=== PATIENT | female | born 2000 | race African-American/Black ===

== ENCOUNTER 2023-02-17 19:18 | Outpatient (REF) | payer MEDICAID, SELFPAY | END 2023-02-17 19:19 | disposition home or self-care (01) | LOC: HO.CHCLNP 19:18 | PROVIDERS: Visit Provider Pediatrics | DX: Z01.411 Encounter for gynecological examination (general) (routine) with abnormal findings (principal) | CPT/HCPCS: 88142 ==

== ENCOUNTER 2023-09-28 08:35 | Outpatient (REF) | payer MEDICAID, SELFPAY ==
[2023-09-28 15:43] LABS: Alanine Aminotransferase 93 U/L (0-31); Albumin Level 4.1 g/dL (3.5-5.0); Alkaline Phosphatase 70 U/L (39-117); Anion Gap 14 (12-20); Aspartate Amino Transferase 57 U/L (5-31); Bilirubin Total 0.6 mg/dL (0.0-1.0); Blood Urea Nitrogen 8 mg/dL (9-16); Calcium 8.6 mg/dL (8.4-10.2); Carbon Dioxide 24 mmol/L (22-29); Chloride 104 mmol/L (96-108); Estimated Glomerular Filt Rate > 60; Glucose Random 77 mg/dL (60-115); Sodium 139 mmol/L (135-145); Total Protein 7.1 g/dL (6.5-8.0)
[2023-09-29 08:52] LABS: HIV AB/AG Nonreactive (Nonreactive); HIV Num 1 0.05 S/CO (0.00-0.99); ~HepC Num1 0.11 S/CO (0.00-0.79); ~Hepatitis C Antibody Nonreactive (Nonreactive)
[2023-10-01 13:23] LABS: TS Negative Control Passed; TS Panel A 0; TS Panel B 0; TS Positive Control Passed; TSpotTB Negative (Negative)
== END 2023-09-28 08:36 | disposition home or self-care (01) ==
LOC: HO.CHCLDS 08:35
PROVIDERS: Visit Provider Internal Medicine
DX: Z00.00 Encounter for general adult medical examination without abnormal findings (principal); E66.01 Morbid (severe) obesity due to excess calories; J39.2 Other diseases of pharynx; E87.6 Hypokalemia; R74.01 Elevation of levels of liver transaminase levels; Z68.41 Body mass index [BMI] 40.0-44.9, adult
CPT/HCPCS: 36415; 80053; 84443; 86481; 86803; 87389

== ENCOUNTER 2024-02-01 10:39 | Outpatient (REF) | payer MEDICAID, SELFPAY ==
[2024-02-01 14:10] LABS: MANUAL DIFF FLAG NO
[2024-02-01 14:15] LABS: Basophils Absolute Auto 0.1 X10*3/uL (0.0-0.2); Basophils Percent Auto 0.8 % (0-2); Eosinophils Absolute Auto 0.1 X10*3/uL (0.0-0.4); Eosinophils Percent Auto 1.5 % (0-4); Hematocrit 41.2 % (37.0-47.0); Imm Gran Abs Auto 0.02 X10*3/uL (0.00-0.03); Imm Gran Pct Auto 0.3 % (0.0-0.4); Lymphocytes Absolute Auto 2.3 X10*3/uL (1.2-4.9); Mean Corpuscular HGB Conc 31.6 g/dl (31.0-35.0); Mean Corpuscular Hemoglobin 25.9 pg (27.0-33.0); Mean Corpuscular Volume 82.2 fL (80.0-98.0); Mean Platelet Volume 11.9 fL (9.4-12.3); Monocytes Absolute Auto 0.4 X10*3/uL (0.1-1.2); Monocytes Percent Auto 5.7 % (2-11); Neutrophils Absolute Auto 3.7 x10*3/uL (2.0-8.3); Neutrophils Percent Auto 56.7 % (45-73); Platelet Count 281 X10*3/uL (160-400); Red Blood Count 5.01 X10*6/uL (4.20-5.50); Red Cell Distribution Width 13.8 % (11.0-16.0); White Blood Count 6.5 X10*3/uL (4.8-10.8)
[2024-02-01 14:34] LABS: Alanine Aminotransferase 104 U/L (0-31); Albumin Level 4.2 g/dL (3.5-5.0); Alkaline Phosphatase 67 U/L (39-117); Anion Gap 9 (12-20); Aspartate Amino Transferase 65 U/L (5-31); Bilirubin Direct 0.3 mg/dL (0.0-0.5); Bilirubin Total 0.9 mg/dL (0.0-1.0); Blood Urea Nitrogen 8 mg/dL (9-16); Calcium 9.2 mg/dL (8.4-10.2); Carbon Dioxide 28 mmol/L (22-29); Chloride 108 mmol/L (96-108); Cholesterol 115 mg/dL (<200); Estimated Glomerular Filt Rate > 60; Glucose Fasting 107 mg/dL (60-99); HDL Cholesterol 40 mg/dL (>40); LDL Cholesterol Calculated 52 mg/dL (<100); Magnesium 2.1 mg/dL (1.6-2.6); Potassium 4.4 mmol/L (3.3-5.1); Sodium 141 mmol/L (135-145); Total Protein 7.3 g/dL (6.5-8.0); Triglycerides 115 mg/dL (<150)
[2024-02-01 14:59] LABS: Anion Gap 12 (12-20); Blood Urea Nitrogen 7 mg/dL (9-16); Calcium 9.7 mg/dL (8.4-10.2); Carbon Dioxide 26 mmol/L (22-29); Chloride 107 mmol/L (96-108); Estimated Glomerular Filt Rate > 60; Glucose Random 105 mg/dL (60-115); HCG Quantitative < 2 mIU/mL; Potassium 4.3 mmol/L (3.3-5.1); Sodium 141 mmol/L (135-145); TSH reflex Free T4 2.11 uIU/mL (0.32-4.0); Vitamin D 25-OH Total 16.8 ng/mL (>30)
[2024-02-02 08:34] LABS: HBc Num1 0.15 S/CO (0.00-0.79); HBsAGNum1 0.24 S/CO (0.00-0.99); Hepatitis A Antibody IgM 0.17 Index (0-0.79); Hepatitis B Core Antibody Nonreactive (Nonreactive); Hepatitis B Surface Antigen Negative (Negative); ~HepC Num1 0.14 S/CO (0.00-0.79); ~Hepatitis A Antibody IgM Nonreactive (Nonreactive); ~Hepatitis B Surface Antibody REACTIVE (Nonreactive); ~Hepatitis C Antibody Nonreactive (Nonreactive)
[2024-02-05 17:33] LABS: Testosterone, Free 6.3 pg/mL (0.1-6.4); Testosterone, Total 39 ng/dL (2-45)
== END 2024-02-01 10:40 | disposition home or self-care (01) ==
LOC: HO.CHCLDS 10:39
PROVIDERS: PCP Pediatrics; Referring Provider Internal Medicine; Visit Provider Pediatrics
DX: E87.6 Hypokalemia (principal); R74.01 Elevation of levels of liver transaminase levels; E66.01 Morbid (severe) obesity due to excess calories; Z68.41 Body mass index [BMI] 40.0-44.9, adult; N92.6 Irregular menstruation, unspecified
CPT/HCPCS: 36415; 80048; 80061; 80076; 82306; 83735; 84402; 84403; 84443; 84702; 85025; 86704; 86706; 86709; 86803; 87340

== ENCOUNTER 2024-05-04 17:18 | Outpatient (REF) | payer MEDICAID, SELFPAY ==
[2024-05-04 17:53] LABS: Appearance Urine Clear; Color Urine Yellow; Glucose Urine UA Negative (Negative); Leukocyte Esterase Urine Trace (Negative); Nitrite Urine Negative (Negative); PH 6.5 (5.0-9.0); Specific Gravity - Urine 1.025 (1.005-1.025); UMIC TRIGGER UACC YES; Urine Blood Negative (Negative); Urine Ketones Negative (Negative); Urine Protein Negative (Neg-Trace)
[2024-05-04 18:07] LABS: Bacteria Urine Trace (None Seen); Hyaline Casts Urine 0-2 /LPF (0-2); RBC Urine 0-2 /HPF (0-2); UACC Culture Trigger YES
[2024-05-05 05:27] LABS: CT PCR NOT DETECTED (Not Detect.); NG PCR NOT DETECTED (Not Detect.)
== END 2024-05-04 17:19 | disposition home or self-care (01) ==
LOC: HO.LNP 17:18
PROVIDERS: Visit Provider Internal Medicine Geriatric Medicine
DX: R35.0 Frequency of micturition (principal); R30.0 Dysuria
CPT/HCPCS: 81001; 87086; 87147; 87491; 87591

== ENCOUNTER 2024-06-13 14:51 | Outpatient (REF) | payer MEDICAID, SELFPAY ==
[2024-06-14 07:31] LABS: CT PCR NOT DETECTED (Not Detect.); NG PCR NOT DETECTED (Not Detect.)
[2024-06-14 11:44] LABS: Bacterial Vaginosis PCR NEGATIVE (Negative); Candida Group PCR NOT DETECTED (Not Detect); Candida glab krusei PCR NOT DETECTED (Not Detect); Trichomonas vaginalis PCR NOT DETECTED (Not Detect)
== END 2024-06-13 14:52 | disposition home or self-care (01) ==
LOC: HO.CHCLNP 14:51
PROVIDERS: Visit Provider Internal Medicine
DX: N89.8 Other specified noninflammatory disorders of vagina (principal)
CPT/HCPCS: 0352U; 87491; 87591

== ENCOUNTER 2024-09-14 12:50 | Outpatient (REF) | payer SELFPAY ==
--- OUTSIDE RECORDS SUMMARY | 2024-09-14 13:19 | XMS_ITS | Encounter Summary ---
Author Organization [employer] Address [address] [facility] 7 [place] [address] Care Team Providers Care Supervisor Packing Room Name Role Phone Eunice Magana MD Primary Care Provider [phone] Reason for Visit * Reason Onset Date Comments Appointment Request 09/14/2023 Encounter Details Date Type Department Care Team ([facility] st Contact Info) Description 09/14/2023 Telephone [facility] MEDICINE [address] [place] [address] Eunice Magana MD [address] [place] [phone] Appointment Request Social History Tobacco Use Types Packs/Day Years Used Date Smoking Tobacco: Never Smokeless Tobacco: Never Alcohol Use Standard Drinks/Week Comments Not Currently 0 (1 standard drink = 0.6 oz pur e alcohol) Housing Stability Answer Date Recorded What is your housing situation today? I have reshmaisa cole 09/16/[address] you li ve. Do you have problems with any of the following? None of the above 09/16/2023 Food Insecurity Answer Date Recorded Within the past 12 months, y ou worried that your food would run out before you got money to buy more: Never True 09/16/2023 Within the past 12 months,th e food you bought just didn't last and you didn't have enough money to get more: Never True Transportation Answer Date Recorded In the past 12 months, has l ack of transportation kept you from medical appts, meetings, work or from getting things needed for daily living? No 09/16/2023 Utilities Answer Date Recorded In the past 12 months, has t he electric, gas, oil or water [employer] threatened to shut off services in your home? No 09/16/2023 Comments Unknown Sex and Gender Information Value Date Recorded Sex Assigned at Female 05/24/2022 10:17 AM EDT Legal Sex Female 10:17 AM EDT Gender Identity Female 05/24/2022 10:17 AM EDT Sexual Orientation Straight 02/01/2024 10 :38 AM EDT documented as of this encounter Miscellaneous Notes * Telephone Encounter - Veronica Lan - 09/14/2023 8:58 AM EST Tc from pt requesting PE appt, pt need PE for a job and also need tb test. documented in this encounter Plan of Treatment Not on file documented as of this encounter Visit Diagnoses Not on filedocumented in this encounter Care Teams Supervisor Packing Room Relationship Specialty Start Date End Date Eunice Magana MD [address] [place] [phone] PCP - General Family Medicine 07/25/18 documented as of this encounter
--- OUTSIDE RECORDS SUMMARY | 2024-09-14 13:19 | XMS_ITS | Encounter Summary ---
Author Organization [employer] Address [address] [facility] 7 [place] [address] Care Team Providers Care Back Panel Padder Name Role Phone Eunice Magana MD Primary Care Provider [phone] Reason for Referral * Imaging (Routine) - Closed Specialty Diagnoses / Procedures Referred By Makayla peck Referred To Contact Radiology Diagnoses Transaminitis Procedures US Abdomen Complete Maribell Damon MD [address] [place] [address] Phone: tel: fax: [facility] [address] [facility], [address] [place] [phone] Phone: tel: fax: Referral ID Status Reason Start Date Expiration Date Visits Re quested Visits Authorized [id number] Closed 09/29/2023 09/28/2024 1 1 Encounter Details Date Type Department Care Team (Late st Contact Info) Description 09/29/2023 Orders Only [facility] MED & PEDS [address] [place], [place] [phone] Maribell Damon MD [address] [place], [place] [phone] Hypokalemia (Primary Dx); Transaminitis Social History Tobacco Use Types Packs/Day Years Used Date Smoking Tobacco: Never Smokeless Tobacco: Never Alcohol Use Standard Drinks/Week Comments Not Currently 0 (1 standard drink = 0.6 oz pur e alcohol) Housing Stability Answer Date Recorded What is your housing situation today? I have reshma sing 09/16/[address] you li [...] t he electric, gas, oil or water company threatened to shut off services in your home? No 09/16/2023 Comments Unknown Sex and Gender Information Value Date Recorded Sex Assigned at Female 05/24/2022 10:17 AM EDT Legal Sex Female 10:17 AM EDT Gender Identity Female 05/24/2022 10:17 AM EDT Sexual Orientation Straight 02/01/2024 10 :38 AM EDT documented as of this encounter Plan of Treatment Scheduled Orders Name Type Priority Associated Diagnoses Orde r Schedule US Abdomen Complete Imaging Routine Transaminitis Expected: 09/29/2023, Expires: 09/28/2024 documented as of this encounter Procedures Procedure Name Priority Date/Time Associated Diagnosis Comments HEPATITIS PANEL, GENERAL Routine 02/01/2024 10:42 AM EDT Transaminitis MAGNESIUM Routine 02/01/2024 10:42 AM EDT Hypokalemia BASIC METABOLIC PANEL Routine 02/01/2024 10:42 AM EDT Hypokalemia documented in this encounter Results * Hepatitis A,B,C Profile (02/01/2024 10:42 AM EDT) Hepatitis A IgM Nonreactive Nonreactive [facility] Comment:IgM antibodies to GARZA V not detected; does not exclude earlyacute or recovered HAV infection. ~Hepatitis B Surface Antibody REACTIVE Nonreactive [facility] Comment:REACTIVE: > 11.99 mI U/mL Hepatitis B Core Antibody Nonreactive Nonreactive [facility] Hepatitis C Antibody Nonreactive Nonreactive [facility] Comment:Antibodies to HCV no t detected; does not exclude early acuteHCV infection. Hepatitis B Surface Ag Negative Negative [facility] Blood Venous blood specimen / Unknown 02/01/2024 10:42 AM EDT 02/01/2024 2:08 PM EDT Maribell Damon MD LAB BLOOD ORDERABLES Final Result Performing Organization Address [facility]/ZIP Co de Phone Number [facility] [address] [place] [phone] * Magnesium (02/01/2024 10:42 AM EDT) Pathologist [facility] Magnesium 2.1 1.6 - 2.6 mg/dL [facility] Blood Venous blood specimen / Unknown 02/01/2024 10:42 AM EDT 02/01/2024 2:08 PM EDT Maribell Damon MD LAB BLOOD ORDERABLES Final Result Performing Organization Address [facility] de Phone Number [facility] [address] [place] [phone] * (ABNORMAL) Basic Metabolic Panel (02/01/2024 10:42 AM EDT) Pathologist [facility] Sodium 141 135 - 145 mmol/L [facility] Potassium 4.3 3.3 - 5.1 mmol/L [facility] Chloride 107 96 - 108 mmol/L [facility] Carbon Dioxide 26 22 - 29 mmol/L [facility] Anion Gap 12 12 - 20 [facility] Urea Nitrogen (BUN) 7(L) 9 - 16 mg/dL [facility] Creatinine, Serum 0.79 0.5 - 1.4 mg/dL [facility] Estimated Glomerular Filt Rate >60 [facility] Comment:NOTE: For -Am erican individuals, multiply the result by 1.210.Chronic Kidney Disease: Estimated GFR < 60 mL/min/1.97y7Huwnpe Kidney Disease: Estimated GFR < 15 mL/min/1.73m2 Glucose 105 60 - 115 mg/dL [facility] Calcium 9.7 8.4 - 10.2 mg/dL [facility] Blood Venous blood specimen / Unknown 02/01/2024 10:42 AM EDT 02/01/2024 2:08 PM EDT us Maribell Damon MD LAB BLOOD ORDERABLES Final Result [facility] [address] [place] [phone] documented in this encounter Visit Diagnoses Diagnosis Hypokalemia- Primary Hypopotassemia Transaminitis Nonspecific elevation of levels of transaminase or lactic acid dehydrogenase (LDH) documented in this encounter Care Teams Back Panel Padder Relationship Specialty Start Date End Date Eunice Magana MD [address] [place] [phone] PCP - General Family Medicine 07/25/18 documented as of this encounter
--- OUTSIDE RECORDS SUMMARY | 2024-09-14 13:19 | XMS_ITS | Clinical Summary ---
Author Organization [employer] Address [address] [place] [address] 7[address] [place] [address] Care Team Providers Care City Designer Name Role Phone Eunice Magana MD Primary Care Provider [phone] Allergies No known active allergies Medications ergocalciferol (Vitamin D2) 1.25 MG (06559 UT) capsule Take 1 capsule (1.25 mg) by mouth 1 (one) time per week. 15 capsule 02/02/2024 Active Active Problems Problem Noted Date Diagnosed Date Class 3 severe obesity witho ut serious comorbidity with body mass index (BMI) of 40.0 to 44.9 in adult 10/27/2022 Childhood obesity 07/11/2018 Encounters Date Type Department Care Team Description 09/14/2024 11:15 AM EST Office Visit [facility] MED & PEDS [address] [place], [place] [phone] Eunice Magana MD DUB (dysfunctional uterine bleeding) (Primary Dx); Class 3 severe obesity without serious comorbidity with body mass index (BMI) of 40.0 to 44.9 in adult, unspecified obesity type (CMS/HCC) 09/14/2024 Travel 09/12/2024 Telephone [facility] MEDICINE [address] [place] [address] Eunice Magana MD Nurse Triage from Last 3 Months Immunizations Name Administration Dates Next Due DTaP 04/03/2004, 1,2000,08/29,2000 HPV, Quadrivalent 10/09/2010,05/13/2010,03/13/20 10 Hep A, ped/adol, 2 dose 07/16/2014 Hep B, Adolescent or Pediatric 08/24/2018,2000,2000 Hep B, adult 04/03/2019,10/02/2018 IPV 04/03/2004, 1,2000,05/30 Influenza injectable quadriv alent preservative free 09/26/2023,07/23/2016,07/23/2015,04/29 Influenza, Split (incl. gunnar fied surface antigen) 05/11/2013 MMR 04/03/2004,2001 Meningococcal MCV4P ACYW-135 07/23/2016,03/11/20 11 Pfizer Covid-19 Vaccine 12+ 09/26/2023, 1 Pneumococcal Conjugate PCV 7 2001, 2000,2000,08/29 TD (adult), 2 Lf tetanus tox oid, preservative free, adsorbed 03/13/2010 Tdap 07/16/2014 Varicella 06/07/2001 Social History Tobacco Use Types Packs/Day Years Used Date Smoking Tobacco: Never Passive Smoke Exposure: Never Smokeless Tobacco: Never Tobacco Cessation:Counseling Given: Not Answered Alcohol Use Standard Drinks/Week Comments Not Currently 0 (1 standard drink = 0.6 oz pur e alcohol) Housing Stability Answer Date Recorded What is your housing situation today? I have reshma cole 09/16/[address] you [...] Orientation Straight 02/01/2024 10 :38 AM EDT Last Filed Vital Signs Vital Sign [place] Time Taken Comments Blood Pressure 124/80 09/14/2024 11:43 AM EST Pulse 91 09/14/2024 11:43 AM EST Temperature 36 ??C (96.8 ??F) 09/14/2024 11:43 AM EST Respiratory Rate 20 09/14/2024 11:43 AM EST Oxygen Saturation 98% 09/14/2024 11:43 AM EST Inhaled Oxygen Concentration - - Weight 119 kg (262 lb) 09/14/2024 11:43 AM EST Height 160 cm (5' 3 ) 09/14/2024 11:43 AM EST Body Mass Index 46.41 09/14/2024 11:43 AM EST Plan of Treatment Health Maintenance Due Date Last Done Comments Depression Screening 2000 Alcohol/Substance Use Screening 2012 Hepatitis A Vaccines (2 of 2 - 2-dose series) 01/14/2015 07/16/2014 COVID-19 Vaccine ( season) 2024 09/26/2023, 06/16/2021, 05/11/2021 Influenza Vaccine (#1) 2024 , 07/23/2016, 07/23/2015, Additional history exists DTaP/Tdap/Td Vaccines (7 - Td or Tdap) 07/16/2024 07/16/2014, 03/13/2010, 04/03/2004, Additional history exists SDOH Screening 09/16/2024 09/16/2023 Diabetes: Hemoglobin A1C 01/31/2025 024, 12/15/2021, 08/14/2020 Family Planning (PISQ) 01/31/2025 02/01/2024 Tobacco Screening 09/14/2025 09/14/2024 Pap Smear 02/17/2026 02/17/2023, 01/14/2022 Lipid Panel 01/31/2029 02/01/2024, 11/23, 08/14/2020 Zoster Vaccines (1 of 2) 2050 RSV Patients and Patients Aged 60 years or older (1 - 1-dose 75+ series) 2075 Pneumococcal Vaccine: Pediatrics (0 to 5 Years) and At-Risk Patients (6 to 49) Years) Aged Out 2001, 2000, 2000, Additional history exists No longer eligible based on patient's age to complete this topic IPV Vaccines Completed 04/03/2004, 09/23, 2000, Additional history exists HPV Vaccines Completed 10/09/2010, 04/25, 03/13/2010 Meningococcal Vaccine Completed 07/23/2016, 011 Hepatitis B Vaccines Completed 04/03/2019, 10/02/2018, 08/24/2018, Additional history exists HIV Screening Completed 09/28/2023, 12/15/2021 Hepatitis C Screening Completed 02/01/2024 , 09/28/2023, 12/15/2021 HIB Vaccines Aged Out No longer eligi ble based on patient's age to complete this topic RSV under 20 months Aged Out No longe r eligible based on patient's age to complete this topic Rotavirus Vaccines Aged Out No longer eligible based on patient's age to complete this topic Procedures Procedure Name Priority Date/Time Associated Diagnosis Comments HEPATITIS PANEL, GENERAL Routine 02/01/2024 10:42 AM EDT Transaminitis LIPID PANEL, STANDARD Routine 02/01/2024 10:42 AM EDT Class 3 severe obesity due to excess calories without serious comorbidity with body mass index (BMI) of 40.0 to 44.9 in adult (CMS/HCC) Missed periods POCT GLYCATED HEMOGLOBIN, TOTAL Routine 02/01/2024 10:09 AM EDT Class 3 severe obesity due to excess calories without serious comorbidity with body mass index (BMI) of 40.0 to 44.9 in adult (CMS/HCC) HIV 1/2 ANTIGEN/ANTIBODY, FOURTH GENERATION W/RFL Routine 09/28/2023 8:37 AM EST Annual physical exam Class 3 severe obesity without serious comorbidity with body mass index (BMI) of 40.0 to 44.9 in adult, unspecified obesity type (CMS/HCC) Throat disorder PAP SMEAR Routine 02/17/2023 12:00 AM EDT Encounter for gynecological examination with abnormal finding from Last 3 Months or Most Recently Relevant to Health Maintenance Results * Hepatitis A,B,C Profile (02/01/2024 10:42 AM EDT) Hepatitis A IgM Nonreactive Nonreactive [facility] Comment:IgM antibodies to GARZA V not detected; does not exclude earlyacute or recovered HAV infection. ~Hepatitis B Surface Antibody REACTIVE Nonreactive [facility] Comment:REACTIVE: > 11.99 mI U/mL Hepatitis B Core Antibody Nonreactive Nonreactive [facility] Hepatitis C Antibody Nonreactive Nonreactive [facility] Comment:Antibodies to HCV no t detected; does not exclude early acuteHCV infection. Hepatitis B Surface Ag Negative Negative [facility] Blood Venous blood specimen / Unknown 02/01/2024 10:42 AM EDT 02/01/2024 2:08 PM EDT us Maribell Damon MD LAB BLOOD ORDERABLES Final Result [facility] [address] [place] [phone] * (ABNORMAL) Lipid Panel, Standard (02/01/2024 10:42 AM EDT) Triglycerides 115 <150 mg/dL [facility] Comment:Desirable Triglyceri de: less than 150 mg/dLBorderline High Triglyceride 150-199 mg/dLHigh Triglyceride: 200-499 mg/dLVery High Triglyceride: greater than or equal to 5OO mg/dL Cholesterol 115 <200 mg/dL [facility] Comment:Desirable Cholestero l: less than 200 mg/dLBorderline High Cholesterol: 200-239 mg/dLHigh Cholesterol: greater than 239 mg/dL LDL Cholesterol Calculated 52 <100 mg/dL [facility] Comment:Desirable LDL: less than 100 mg/dLNear Optimal/Above Optimal LDL: 110- 129 mg/dLBorderline High LDL: 130-159 mg/dLHigh LDL: 160-189 mg/dLVery High LDL: greater than or equal to 190 mg/dL HDL Cholesterol 40(L) >40 mg/dL [facility] Comment:Desirable HDL: great er than 40 mg/dL Note: This HDL assay may give artificially low results in patients with liver disease. Blood Venous blood specimen / Unknown 02/01/2024 10:42 AM EDT 02/01/2024 2:08 PM EDT us Eunice Magana MD LAB BLOOD ORDERABLES Final Re sult [facility] [address] [place] [phone] * POCT HGB A1C (02/01/2024 10:09 AM EDT) Hemoglobin A1C 5.9 4.0 - 6.0 % QC Media Lot # [id number] Lot# Expiration Date Blood 02/01/2024 10:0 9 AM EDT Eunice Magana MD POINT OF CARE TEST ENTER/EDIT ORDERABLES Final Result * HIV-1/2 Antigen and Antibodies, Fourth Generation, with Reflexes (09/28/2023 8:37 AM EST) HIV AB/AG Nonreactive Nonreactive [facility] Comment:HIV-1 p24 Ag and/or HIV-1/HIV-2 Ab not detected.A test result that is nonreactive does not exclude thepossibility of exposure to or infection with HIV-1 and/orHIV-2. Nonreactive results in this assay for individualswith prior exposure to HIV-1 and/or HIV-2 may be due toantigen and antibody levels that are below the limit ofdetection of this assay.The [employer] HIV Ag/Ab Combo assay result andsupplemental assay results should be interpreted inconjunction with the patient's clinical presentation,history and other laboratory results. If the results areinconsistent with clinical evidence, additional testing issuggested to confirm the result. Blood Venous blood specimen / Unknown 09/28/2023 8:37 AM EST 09/28/2023 2:32 PM EST us Maribell Damon MD LAB BLOOD ORDERABLES Final Result [facility] [address] [place] [phone] * Pap Smear (02/17/2023 12:00 AM EDT) Swab Cervix uteri structure / Unknown 02/17/2023 02/22/2023 9:15 AM EDT Narrative [facility] - 03/16/2023 9:25 AM EDT ----- ------- Name: Sohan Mcgrath ?Age/Sex: 22/F ? : 2000 Unit#: [id number] ?? Attend Dr: Eunice Magana MD ?Re02/17/23 ?Status: DEP REF ? Location: HO.CHCLNP ? Disch: ? ----- ------- SPEC : [id number] ?RECD: 02/22/23 ? STATUS: ??SOUT ? REQ NUM: [id number] ? ALECIA: 02/17/23- ? SUBM DR: Eunice Magana MD ? ENTERED: ??02/23/23 ?SP TYPE: Pap Smr ?OTHR : ? ORDERED: ??Pap Smear ? Interpretation ?? Satisfactory for evaluation. ?? Negative for intraepithelial lesion or malignancy. ?Clinical Information LMP: 12/23/22, Irregular Previous PAP test: 01/14/22, Abnormal Other history: Hx of abnormal pap within 3 years (ASCUS), hx of positive HPV test ? Material Received ?? ThinPrep-Cervical ----- ------- Signed (signature on file) GRETTA Carlson ([facility]) 03/16/23 0925 ? ----- ------- ? END OF REPORT ? us Eunice Magana MD LAB CYTOLOGY ORDERABLES Final Result [facility] [address] [place] [address] [phone] from Last 3 Months or Most Recently Relevant to [place] [address] Care Teams City Designer Relationship Specialty Start Date End Date Eunice Magana MD [address] [place] [phone] PCP - General Family Medicine 07/25/18
--- OUTSIDE RECORDS SUMMARY | 2024-09-14 13:20 | XMS_ITS | Clinical Summary ---
Author Organization [employer] [facility] it Address [address] [place] [address] Care Team Providers Care Mold Cleaner Name Role Phone Unavailable Primary Care Provider Unavailabl e Social History Tobacco Use Types Packs/Day Years Used Date Smoking Tobacco: Never Assessed Comments Unknown Sex and Gender Information Value Date Recorded Sex Assigned at Not on file Legal Sex Female 9:00 AM EST Gender Identity Not on file Sexual Orientation Not on file Plan of Treatment Health Maintenance Due Date Last Done Comments Gonorrhea/Chlamydia Screening 2000 HPV Vaccines (1 - 3-dose series) 2015 DTaP,Tdap,and Td Vaccines (1 - Tdap) 2019 Hepatitis B Vaccines (1 of 3 - 19+ 3-dose series) 2019 Cervical Cancer Screening: P ap Smear 2021 Depression Screening 06/27/2022 HIV Screening 06/27/2022 Hepatitis C Screening 06/27/2022 Social Influencers of Health Screening 06/27/2022 COVID-19 Vaccine ( - 2023-2 5 season) 2024 Influenza Vaccine (#1) 2024 HIB Vaccines Aged Out No longer eligi ble based on patient's age to complete this topic Hepatitis A Vaccines Aged Out No long er eligible based on patient's age to complete this topic IPV Vaccines Aged Out No longer eligi ble based on patient's age to complete this topic MMR Vaccines Aged Out No longer eligi ble based on patient's age to complete this topic Meningococcal ACWY Vaccine Aged Out N o longer eligible based on patient's age to complete this topic Meningococcal B Vacine Aged Out No lo nger eligible based on patient's age to complete this topic Pneumococcal Vaccine: Pediat rics (0 to 5 Years) and At-Risk Patients (6 to 64 Years) Aged Out No longer eligible b ased on patient's age to complete this topic RSV Immunization Patients Un justice 20 months Aged Out No longer eligible b ased on patient's age to complete this topic Varicella Vaccines Aged Out No longer eligible based on patient's age to complete this topic
--- OUTSIDE RECORDS SUMMARY | 2024-09-14 13:20 | XMS_ITS | Encounter Summary ---
Author Organization [email or web address] Address [address] [place] [address] Care Team Providers Care Vehicle Assembly Inspector Name Role Phone Eunice Magana MD Primary Care Provider [phone] Reason for Referral * Imaging (Routine) - Authorized Specialty Diagnoses / Procedures Referred By Contac t Referred To Contact Radiology Diagnoses DUB (dysfunctional uterine bleeding) Procedures Us Pelvis complete Eunice Magana MD [address] [place] [address] Phone: tel: fax: [facility] [address] [place] [address] Phone: tel: fax: Referral ID Status Reason Start Date Expiration Date V isits Requested Visits Authorized [id number] Authorized 09/14/2024 09/14/2025 1 1 * Imaging (Routine) - Authorized Specialty Diagnoses / Procedures Referred By Contac t Referred To Contact Radiology Diagnoses DUB (dysfunctional uterine bleeding) Procedures US Pelvis Transvaginal Eunice Magana MD [address] [place] [address] Phone: tel: fax: [facility] [address] [place] [address] Phone: tel: fax: Referral ID Status Reason Start Date Expiration Date V isits Requested Visits Authorized [id number] Authorized 09/14/2024 09/14/2025 1 1 Encounter Details Date Type Department Care Team (Late st Contact Info) Description 09/14/2024 11:15 AM EST Office Visit [facility] P[facility]S [address] [place] [address] Eunice Magana MD [address] [place] [address] DUB (dysfunctional uterine bleeding) (Primary Dx); Class 3 severe obesity without serious comorbidity with body mass index (BMI) of 40.0 to 44.9 in adult, unspecified obesity type (CMS/HCC) Social History Tobacco Use Types Packs/Day Years Used Date Smoking Tobacco: Never Passive Smoke Exposure: Never Smokeless Tobacco: Never Alcohol Use Standard [...] AM EDT documented as of this encounter Last Filed Vital Signs Vital Sign Reading [...] Mass Index 46.41 09/14/2024 11:43 AM EST documented in this encounter Plan of Treatment Scheduled Orders Name Type Priority Associated Diagnoses Orde r Schedule Chlamydia/N. Gonorrhoeae RNA, TMA, Urogenitial Microbiology Routine DUB (dysfunctional uterine bleeding) Ordered: 09/14/2024 TSH W/Reflex to FT4 Lab Routine DUB (dysfunctional uterine bleeding) Expected: 09/14/2024 (Approximate), Expires: 09/14/2025 Hemoglobin A1c Lab Routine DUB (dysfunctional uterine bleeding) Expected: 09/14/2024 (Approximate), Expires: 09/14/2025 Prothrombin Time-INR Lab Routine DUB (dysfunctional uterine bleeding) Expected: 09/14/2024, Expires: 09/14/2025 hCG, Total, Quantitative Lab Routine DUB (dysfunctional uterine bleeding) Expected: 09/14/2024 (Approximate), Expires: 09/14/2025 CBC auto differential Lab Routine DUB (dysfunctional uterine bleeding) Expected: 09/14/2024 (Approximate), Expires: 09/14/2025 Lipid Panel, Standard Lab Routine Class 3 severe obesity without serious comorbidity with body mass index (BMI) of 40.0 to 44.9 in adult, unspecified obesity type (CMS/HCC) Expected: 09/14/2024 (Approximate), Expires: 09/14/2025 Hepatic Function Panel Lab Routine Class 3 severe obesity without serious comorbidity with body mass index (BMI) of 40.0 to 44.9 in adult, unspecified obesity type (CMS/HCC) Expected: 09/14/2024 (Approximate), Expires: 09/14/2025 Bacterial Vaginosis Panel Microbiology Routine DUB (dysfunctional uterine bleeding) Ordered: 09/14/2024 Hepatitis C Antibody with Reflex to HCV, RNA, Quantitative, Real-Time PCR Lab Routine DUB (dysfunctional uterine bleeding) Expected: 09/14/2024, Expires: 09/14/2025 HIV-1/2 Antigen and Antibodies, Fourth Generation, with Reflexes Lab Routine DUB (dysfunctional uterine bleeding) Expected: 09/14/2024 (Approximate), Expires: 09/14/2025 Syphilis Screen Lab Routine DUB (dysfunctional uterine bleeding) Expected: 09/14/2024, Expires: 09/14/2025 US Pelvis Transvaginal Imaging Routine DUB (dysfunctional uterine bleeding) Expected: 09/14/2024, Expires: 09/14/2025 Us Pelvis complete Imaging Routine DUB (dysfunctional uterine bleeding) Expected: 09/14/2024, Expires: 09/14/2025 documented as of this encounter Visit Diagnoses Diagnosis DUB (dysfunctional uterine bleeding)- Primary Other disorder of menstruation and other abnormal bleeding from female genital tract Class 3 severe obesity without serious comorbidity with body mass index (BMI) of 40.0 to 44.9 in adult, unspecified obesity type (CMS/HCC) documented in this encounter Care Teams Vehicle Assembly Inspector Relationship Specialty Start Date End Date Eunice Magana MD [address] [place] [phone] PCP - General Family Medicine 07/25/18 documented as of this encounter
--- OUTSIDE RECORDS SUMMARY | 2024-09-14 13:20 | XMS_ITS | Encounter Summary ---
Author Organization [employer] Address [address] [facility] 7t [place] [address] Care Team Providers Care Diamond Die Polisher Name Role Phone Eunice Magana MD Primary Care Provider Encounter Details Date Type Department Care Team ([facility] st Contact Info) Description 02/02/2024 Telephone [facility] MED & PEDS [address] [place], [place] [phone] Eunice Magana MD [address] [place] [address] Social History Tobacco Use Types Packs/Day Years [...] encounter Miscellaneous Notes * Telephone Encounter - Eunice Magana MD - 02/02/2024 1:12 PM EDT ----- Message from Maribell Damon MD sent at 02/01/2024 3:42 PM EDT ----- FYI. Sent to me by mistake. ----- Message ----- From: Interface, Lab Results In Sent: 02/01/2024 2:17 PM EDT To: Maribell Damon MD documented in this encounter Plan of Treatment Not on file documented as of this encounter Visit Diagnoses Not on filedocumented in this encounter Care Teams Diamond Die Polisher Relationship Specialty Start Date End Date Eunice Magana MD [address] [place] [address] PCP - General Family Medicine 07/25/18 documented as of this encounter
--- OUTSIDE RECORDS SUMMARY | 2024-09-14 13:20 | XMS_ITS | Encounter Summary ---
Author Organization [employer] Address [address] [facility] 7t [place] [address] Care Team Providers Care Pin Worker Name Role Phone Eunice Magana MD Primary Care Provider [phone] Encounter Details Date Type Department Care Team (Latest Contact Info) Description 09/14/2024 Travel Social History Tobacco Use Types Packs/Day Years [...] as of this encounter Plan of Treatment Not on file documented as of this encounter Visit Diagnoses Not on filedocumented in this encounter Care Teams Pin Worker Relationship Specialty Start Date End Date Eunice Magana MD [address] [place] [address] PCP - General Family Medicine 07/25/18 documented as of this encounter
--- OUTSIDE RECORDS SUMMARY | 2024-09-14 13:20 | XMS_ITS | Encounter Summary ---
Author Organization [employer] Address [address] [facility] 7t [place] [address] Care Team Providers Care Electrical Controls Designer Name Role Phone Eunice Magana MD Primary Care Provider [phone] Reason for Visit * Reason Onset Date Comments Nurse Triage 09/12/2024 Encounter Details Date Type Department Care Team ([facility] st Contact Info) Description 09/12/2024 Telephone [facility] [address] [place] [address] Eunice Magana MD [address] [place] [address] Nurse Triage Social History Tobacco Use Types Packs/Day Years [...] encounter Miscellaneous Notes * Telephone Encounter - Ella Kinsey RN - 09/12/2024 9:46 AM EST Triage call Pt reports abnormal vaginal bleeding for a month now. Days range from heavy using 5-6 pads to light with only 1-2 pads. Pt denies abdominal pain, dizziness, nausea, vomiting. Neg for UTI sx or bruising. Pt was last seen 06/13/24. ASK apt with Dr. Magana 09/14/24 @ 1115am. Pt agrees withdisposition. Pt is going to call insurance to be sure in place before apt. Pt switched to [employer]. Protocol Used: Vaginal Bleeding - Abnormal (Adult) Protocol-Based Disposition: See in Office or Video Visit within 2 Weeks Positive Triage Question: * Periods last > 7 days * All higher-acuity triage questions were negative Care Advice Discussed: * Reasons To Call Back - Severe abdomen pain or lightheadedness occurs - test is positive - Bleeding worsens - Bleeding or spotting lasts over 7 days - You become worse * Telephone Encounter - Matthieu Arteaga - 09/12/2024 9:26 AM EST TC from pt reports having menstrual cycle for about a month now and is concerned , Please call [phone] Pt changed her insurance to [employer] / currently active but re- assingned to [employer]eg[employer] . Ptwill be contacting insurance today . documented in this encounter Plan of Treatment Not on file documented as of this encounter Visit Diagnoses Not on filedocumented in this encounter Care Teams Electrical Controls Designer Relationship Specialty Start Date End Date Eunice Magana MD [address] [place] [address] PCP - General Family Medicine 07/25/18 documented as of this encounter
[2024-09-14 14:01] LABS: MANUAL DIFF FLAG NO
[2024-09-14 14:05] LABS: Basophils Absolute Auto 0.1 X10*3/uL (0.0-0.2); Basophils Percent Auto 0.8 % (0-2); Eosinophils Absolute Auto 0.2 X10*3/uL (0.0-0.4); Eosinophils Percent Auto 2.4 % (0-4); Hematocrit 40.9 % (37.0-47.0); Imm Gran Abs Auto 0.03 X10*3/uL (0.00-0.03); Imm Gran Pct Auto 0.4 % (0.0-0.4); Lymphocytes Percent Auto 26.6 % (20-40); Mean Corpuscular HGB Conc 31.8 g/dl (31.0-35.0); Mean Corpuscular Hemoglobin 25.8 pg (27.0-33.0); Mean Corpuscular Volume 81.3 fL (80.0-98.0); Mean Platelet Volume 11.5 fL (9.4-12.3); Monocytes Absolute Auto 0.5 X10*3/uL (0.1-1.2); Monocytes Percent Auto 6.6 % (2-11); Neutrophils Absolute Auto 4.8 x10*3/uL (2.0-8.3); Neutrophils Percent Auto 63.2 % (45-73); Platelet Count 286 X10*3/uL (160-400); Red Blood Count 5.03 X10*6/uL (4.20-5.50); Red Cell Distribution Width 13.8 % (11.0-16.0); White Blood Count 7.6 X10*3/uL (4.8-10.8)
[2024-09-14 14:13] LABS: Estimated Average Glucose 114 mg/dL; Hemoglobin A1C 130.0382 umol/L; Hemoglobin A1c % 5.6 % (<6.0); Total Hemoglobin (HGBA1C) 3440.8856 umol/L
[2024-09-14 14:30] LABS: Alanine Aminotransferase 99 U/L (0-31); Albumin Level 4.3 g/dL (3.5-5.0); Alkaline Phosphatase 76 U/L (39-117); Aspartate Amino Transferase 65 U/L (5-31); Bilirubin Direct 0.5 mg/dL (0.0-0.5); Bilirubin Total 1.3 mg/dL (0.0-1.0); Cholesterol 116 mg/dL (<200); HDL Cholesterol 42 mg/dL (>40); LDL Cholesterol Calculated 57 mg/dL (<100); Triglycerides 88 mg/dL (<150)
[2024-09-14 14:35] LABS: HCG Quantitative < 2 mIU/mL; TSH reflex Free T4 1.83 uIU/mL (0.32-4.0)
[2024-09-15 02:30] LABS: CT PCR NOT DETECTED (Not Detect.); NG PCR NOT DETECTED (Not Detect.)
[2024-09-15 08:14] LABS: HIV AB/AG Nonreactive (Nonreactive); HIV Num 1 0.06 S/CO (0.00-0.99); Syphilis Screen Nonreactive (Nonreactive); ~Hepatitis C Antibody Nonreactive (Nonreactive)
[2024-09-16 09:42] LABS: Bacterial Vaginosis PCR NEGATIVE (Negative); Candida Group PCR NOT DETECTED (Not Detect); Candida glab krusei PCR NOT DETECTED (Not Detect); Trichomonas vaginalis PCR NOT DETECTED (Not Detect)
== END 2024-09-14 12:51 | disposition home or self-care (01) ==
LOC: HO.CHCLDS 12:50
PROVIDERS: Visit Provider Pediatrics
DX: N93.8 Other specified abnormal uterine and vaginal bleeding (principal); E66.813 Obesity, class 3; E66.01 Morbid (severe) obesity due to excess calories; Z68.41 Body mass index [BMI] 40.0-44.9, adult; Z13.1 Encounter for screening for diabetes mellitus
CPT/HCPCS: 36415; 80061; 80076; 81515; 83036; 84443; 84702; 85025; 85610; 86780; 86803; 87389; 87491; 87591

== ENCOUNTER 2024-10-19 13:55 | Outpatient (REF) | payer MEDICAID, SELFPAY ==
--- NOTE | ~2024-10-19 | US_ITS ---
EXAMINATION: US PELVIS TRANSABDOMINAL AND TRANSVAGINAL HISTORY: dub COMPARISON: There are no prior studies for comparison. TECHNIQUE: Transabdominal and endovaginal real-time 2D jacobo-scale ultrasound was performed. FINDINGS: Uterus: The uterus is normal in size, measuring 6.8 x 3.3 x 4.4 cm. Myometrium has a normal echotexture. No fibroids are identified. Endometrium: The endometrial stripe measures 12 mm in thickness and demonstrates heterogeneous echotexture with small cystic spaces. There are nabothian cysts in the cervix. Right ovary: The right ovary measures 3.2 x 2.0 x 2.1 cm. The right ovary is normal in size and echotexture. Left ovary: The left ovary measures 3.8 x 1.9 x 1.7 cm. The left ovary is normal in size and echotexture. Pelvic fluid: none. US/US pelvic and transvaginal IMPRESSION: Thickened heterogeneous endometrial stripe demonstrating small cystic spaces. Otherwise unremarkable pelvic ultrasound. Electronically signed by: Demetris Shane MD 10/19/2024 02:33 PM EDT
== END 2024-10-19 13:56 | disposition home or self-care (01) ==
LOC: HO.HMGCX 13:55
PROVIDERS: PCP Pediatrics; Visit Provider Pediatrics
DX: N93.8 Other specified abnormal uterine and vaginal bleeding (principal)
CPT/HCPCS: 76830; 76856

== ENCOUNTER → 2024-10-19 13:58 | Outpatient (BNV) | payer MEDICAID, SELFPAY | PROVIDERS: PCP Pediatrics; Visit Provider Radiology Diagnostic Radiology | DX: N93.8 Other specified abnormal uterine and vaginal bleeding (principal) | CPT/HCPCS: 76830; 76856 ==

== ENCOUNTER 2025-04-10 09:34 | Outpatient (REF) | payer MEDICAID, SELFPAY ==
--- OUTSIDE RECORDS SUMMARY | 2025-04-10 09:30 | XMS_ITS | Encounter Summary ---
Author Organization [employer] Address [address] [place] [address] 7 [place] [address] Care Team Providers Care Escrow Representative Name Role Phone Eunice Magana MD Primary Care Provider [phone] Encounter Details Date Type Department Care Team ([facility] st Contact Info) Description 04/10/2025 9:30 AM EDT Office Visit [facility] P[facility] [address] [place], [place] [phone] Eunice Magana MD [address] [place], [place] [phone] Prediabetes (Primary Dx); Missed periods Social History Tobacco Use Types Packs/Day Years Used Date Smoking Tobacco: Never Passive Smoke Exposure: Never Smokeless Tobacco: Never Alcohol Use Standard Drinks/Week Comments Not Currently 0 (1 standard drink = 0.6 oz pur e alcohol) Depression Answer Date Recorded Patient Health Questionnaire-9 Score 4 04/10/2025 Patient Health Questionnaire-9 Score 4 04/10/2025 Last PHQ-9: Questionnaire Data Not on file 0 04/10/2025 Housing Stability Answer Date Recorded What is [...] off services in your home? No 09/16/2023 Depression Answer Date Recorded Patient Health Questionnaire-2 Score 2 04/10/2025 Comments Unknown Sex and Gender Information Value Date Recorded Sex Assigned at Female 05/24/2022 10:17 AM EDT Legal Sex Female 10:17 AM EDT Gender Identity Female 05/24/2022 10:17 AM EDT Sexual Orientation Straight 02/01/2024 10 :38 AM EDT documented as of this encounter Last Filed Vital Signs Vital Sign Reading Time Taken Comments Blood Pressure 130/88 04/10/2025 9:14 AM EDT Pulse 76 04/10/2025 9:14 AM EDT Temperature 36.5 C (97.7 F) 04/10/2025 9:14 AM EDT Respiratory Rate 20 04/10/2025 9:14 AM EDT Oxygen Saturation - - Inhaled Oxygen Concentration - - Weight 120 kg (265 lb) 04/10/2025 9:14 AM EDT Height - - Body Mass Index 44.78 12/24/2024 5:26 PM EDT documented in this encounter Functional Status * Over the past 2 weeks, how often have you been bothered by any of the following problems? Question Answer Date of Assessment Author Patient Health Questionnaire -2 Score 2 04/10/2025 9:17 AM EDT Lowell Rosales MA * Little interest or pleasure in doing things Answer Date of Assessment Author Several days 04/10/2025 9:17 AM EDT Jacinta Rosales MA * Feeling down, depressed, or hopeless Answer Date of Assessment Author Several days 04/10/2025 9:17 AM EDT Jacinta Rosales MA * Trouble falling or staying asleep, or sleeping too much Answer Date of Assessment Author Several days 04/10/2025 9:17 AM EDT Jacinta Rosales MA * Feeling tired or having little energy Answer Date of Assessment Author Several days 04/10/2025 9:17 AM EDT Jacinta Rosales MA * Poor appetite or overeating Answer Date of Assessment Author Not at all 04/10/2025 9:17 AM Jacinta Stephens MA * Feeling bad about yourself - or that you are a failure or have let yourself or your family down Answer Date of Assessment Author Not at all 04/10/2025 9:17 AM Jacinta Stephens MA * Trouble concentrating on things, such as reading the newspaper or watching television Answer Date of Assessment Author Not at all 04/10/2025 9:17 AM Jacinta Stephens MA * Moving or speaking so slowly that other people could have noticed? Or the opposite - being so fidgety or restless that you have been moving around a lot more than usual. Answer Date of Assessment Author Not at all 04/10/2025 9:17 AM Jacinta Stephens MA * Thoughts that you would be better off or hurting yourself in some way Answer Date of Assessment Author Not at all 04/10/2025 9:17 AM Jacinta Stephens MA * Patient Health Questionnaire-9 Score Answer Date of Assessment Author 4 04/10/2025 9:17 AM Jacinta Stephens MA * How difficult have these problems made it for you to do your work, take care of things at home, or get along with other people? Answer Date of Assessment Author Not difficult at all 04/10/2025 9:17 AM EDT Jacinta Richards MA documented as of this encounter Progress Notes * Eunice Magana MD - 04/10/2025 9:30 AM EDT Subjective Patient ID: Sohan Mcgrath is a 25 y.o. female who presents for follow up weight. Sohan is a 25 y/o female patient of mine here for follow up weight and irregular periods.Had a D and C done in when on vacation due to heavy uterine bleeding.States also received 1 blood transfusion due to HgB of 8. Feels better now. Last period was in January but has irregular periods history.Nohome test done yet. Patient wants to be eventually. lives in and she lives in [place] and they dont see each other frequently. Review of Systems Constitutional: Negative for activity change, chills, fever and unexpected weight change. Respiratory: Negative for cough, shortness of breath and wheezing. Cardiovascular: Negative for chest pain, palpitations and leg swelling. Gastrointestinal: Negative for abdominal pain and blood in stool. Endocrine: Negative for polydipsia and polyuria. Genitourinary: Negative for decreased urine volume, difficulty urinating, dysuria, hematuria, vaginal bleeding, vaginal discharge and vaginal pain. Musculoskeletal: Negative for arthralgias and gait problem. Skin: Negative for color change and rash. Neurological: Negative for dizziness, light-headedness and headaches. Hematological: Negative for adenopathy. Psychiatric/Behavioral: Negative for behavioral problems, dysphoric mood, hallucinations, sleep disturbance and suicidal ideas. The patient is not nervous/anxious. Objective BP 130/88 (BP Location: Left arm, Patient Position: Sitting, BP Cuff Size: Adult) Pulse76 Temp 97.7 ??F (36.5 ??C) (Oral) Resp 20 Wt 265 lb (120 kg) LMP 12/23/2024 (Within Weeks) BMI 44.78 kg/m?? Physical Exam Constitutional: General: She is not in acute distress. Appearance: Normal appearance. She is not ill-appearing. HENT: Head: Normocephalic. Right Ear: Tympanic membrane and ear canal normal. Left Ear: Tympanic membrane and ear canal normal. Nose: Nose normal. Mouth/Throat: Mouth: Mucous membranes are moist. Pharynx: No oropharyngeal exudate or posterior oropharyngeal erythema. Eyes: Extraocular Movements: Extraocular movements intact. Conjunctiva/sclera: Conjunctivae normal. Pupils: Pupils are equal, round, and reactive to light. Cardiovascular: Rate and Rhythm: Normal rate and regular rhythm. Pulses: Normal pulses. Heart sounds: Normal heart sounds. Pulmonary: Effort: Pulmonary effort is normal. No respiratory distress. Breath sounds: Normal breath sounds. Abdominal: General: There is distension. Palpations: Abdomen is soft. Musculoskeletal: General: Normal range of motion. Cervical back: Normal range of motion. Skin: General: Skin is warm. Capillary Refill: Capillary refill takes less than 2 seconds. Neurological: General: No focal deficit present. Mental Status: She is alert and oriented to person, place, and time. Psychiatric: Mood and Affect: Mood normal. Behavior: Behavior normal. Thought Content: Thought content normal. Judgment: Judgment normal. Assessment/Plan Diagnoses and all orders for this visit: Prediabetes Comments: Recheck A1c today, weight increased again. Continue phentermine and topamax which was helpful. RTC in 2-3 months.Aware needs to stop these meds if . Orders: - CBC auto differential; Future - Vitamin D, 25-Hydroxy, Total, Immunoassay; Future - Hepatic Function Panel; Future - hCG, Total, Quantitative; Future - Hemoglobin A1c; Future Missed periods Comments: Check HCG, patient aware needs to stop topamax and phentermine if . Pap UTD. Orders: - CBC auto differential; Future - Vitamin D, 25-Hydroxy, Total, Immunoassay; Future - Hepatic Function Panel; Future - hCG, Total, Quantitative; Future Other orders - Vit-Fe Fumarate-FA ( Vitamins) 28-0.8 MG tablet; Take 1 tablet by mouth Once perday. - topiramate (Topamax) 50 MG tablet; Take 1 tablet (50 mg) by mouth Once per day. - phentermine 15 MG capsule; Take 1 capsule (15 mg) by mouth before breakfast. documented in this encounter Plan of Treatment Scheduled Orders Name Type Priority Associated Diagnoses Orde r Schedule CBC auto differential Lab Routine Prediabetes Missed periods Expected: 04/10/2025 (Approximate), Expires: 04/10/2026 Vitamin D, 25-Hydroxy, Total, Immunoassay Lab Routine Prediabetes Missed periods Expected: 04/10/2025 (Approximate), Expires: 04/10/2026 Hepatic Function Panel Lab Routine Prediabetes Missed periods Expected: 04/10/2025 (Approximate), Expires: 04/10/2026 hCG, Total, Quantitative Lab Routine Prediabetes Missed periods Expected: 04/10/2025 (Approximate), Expires: 04/10/2026 Hemoglobin A1c Lab Routine Prediabetes Expected: 04/10/2025 (Approximate), Expires: 04/10/2026 documented as of this encounter Visit Diagnoses Diagnosis Prediabetes- Primary Other abnormal glucose Missed periods Absence of menstruation documented in this encounter Additional Health Concerns Assessment Noted Time PHQ-9 Depression Total Score: 4 04/10/20 25 9:17 AM EDT documented as of this encounter Care Teams Escrow Representative Relationship Specialty Start Date End Date Eunice Magana MD [address] [place] [phone] PCP - General Family Medicine 07/25/18 documented as of this encounter
--- OUTSIDE RECORDS SUMMARY | 2025-04-10 11:20 | XMS_ITS | Encounter Summary ---
Author Organization [employer] Address [address] [facility] 7t [place] [address] Care Team Providers Care Telephone Station Repairer Name Role Phone Eunice Magana MD Primary Care Provider Encounter Details Date Type Department Care Team (Latest Contact Info) Description 04/09/2025 Travel Social History Tobacco Use Types Packs/Day [...] on filedocumented in this encounter Care Teams Telephone Station Repairer Relationship Specialty Start Date End Date Eunice Magana MD [address] [place] [address] PCP - General Family Medicine 07/25/18 documented as of this encounter
--- OUTSIDE RECORDS SUMMARY | 2025-04-10 11:20 | XMS_ITS | Encounter Summary ---
Author Organization [employer] Address [address] [place] [address] [place] [address] Care Team Providers Care Smoke Control Supervisor Name Role Phone Eunice Magana MD Primary Care Provider [phone] Reason for Referral * Imaging (Routine) - Closed Specialty Diagnoses / Procedures Referred By Makayla peck Referred To Contact Radiology Diagnoses Transaminitis Procedures US Abdomen Complete Maribell Damon MD [address] [place] [address] Phone: tel: fax: [facility] [address] [facility], [address] [place] [phone] Phone: tel: fax: Referral ID Status Reason Start Date Expiration Date Visits Re quested Visits Authorized [id number] Closed 09/29/2023 09/28/2024 1 1 Encounter Details Date Type Department Care Team (Late st Contact Info) Description 09/29/2023 Orders Only [facility] [address] [place], [place] [phone] Maribell Damon MD [address] [place], [place] [phone] Hypokalemia (Primary Dx); Transaminitis Social History Tobacco [...] AM EDT) Hepatitis A IgM Nonreactive Nonreactive [facility] Comment:IgM antibodies to GARZA V not detected; does not exclude earlyacute or recovered HAV infection. ~Hepatitis B Surface Antibody REACTIVE Nonreactive [facility] Comment:REACTIVE: > 11.99 mI U/mL Hepatitis B Core Antibody Nonreactive Nonreactive [facility] Hepatitis C Antibody Nonreactive Nonreactive [facility] Comment:Antibodies to HCV no t detected; does not exclude early acuteHCV infection. Hepatitis B Surface Ag Negative Negative [facility] Blood Venous blood specimen / Unknown 02/01/2024 10:42 AM EDT 02/01/2024 2:08 PM EDT Maribell Damon MD LAB BLOOD ORDERABLES Final Result Performing Organization Address [facility]/ZIP Co de Phone Number [facility] [address] [place] [phone] * Magnesium (02/01/2024 10:42 AM EDT) Pathologist [facility] Magnesium 2.1 1.6 - 2.6 mg/dL [facility] Blood Venous blood specimen / Unknown 02/01/2024 10:42 AM EDT 02/01/2024 2:08 PM EDT Maribell Damno MD LAB BLOOD ORDERABLES Final Result Performing Organization Address [facility] de Phone Number [facility] [address] [place] [phone] * (ABNORMAL) Basic Metabolic Panel (02/01/2024 10:42 AM EDT) Pathologist [facility] Sodium 141 135 - 145 mmol/L [facility] Potassium 4.3 3.3 - 5.1 mmol/L [facility] Chloride 107 96 - 108 mmol/L [facility] Carbon Dioxide 26 22 - 29 mmol/L [facility] Anion Gap 12 12 - 20 [facility] Urea Nitrogen (BUN) 7(L) 9 - 16 mg/dL [facility] Creatinine, Serum 0.79 0.5 - 1.4 mg/dL [facility] Estimated Glomerular Filt Rate >60 [facility] Comment:NOTE: For -Am erican individuals, multiply the result by 1.210.Chronic Kidney Disease: Estimated GFR < 60 mL/min/1.15n2Idvoae Kidney Disease: Estimated GFR < 15 mL/min/1.73m2 Glucose 105 60 - 115 mg/dL [facility] Calcium 9.7 8.4 - 10.2 mg/dL [facility] Blood Venous blood specimen / Unknown 02/01/2024 10:42 AM EDT 02/01/2024 2:08 PM EDT us Maribell Damon MD LAB BLOOD ORDERABLES Final Result [facility] [address] [place] [address] [phone] documented in this encounter Visit Diagnoses Diagnosis Hypokalemia- Primary Hypopotassemia Transaminitis Nonspecific elevation of levels of transaminase or lactic acid dehydrogenase (LDH) documented in this encounter Care Teams Smoke Control Supervisor Relationship Specialty Start Date End Date Eunice Magana MD [address] [place] [address] PCP - General Family Medicine 07/25/18 documented as of this encounter
--- OUTSIDE RECORDS SUMMARY | 2025-04-10 11:20 | XMS_ITS | Encounter Summary ---
Author Organization [employer] Address [address] [facility] 7 [place] [address] Care Team Providers Care Tourist Information Assistant Name Role Phone Enuice Magana MD Primary Care Provider [phone] Reason for Visit * Reason Onset Date Comments Med Refill 01/19/2025 Encounter Details Date Type Department Care Team ([facility] st Contact Info) Description 01/19/2025 Refill [facility]EDS [address] [place], [place] [phone] Eunice Magana MD [address] [place] [address] Social History Tobacco Use Types Packs/Day Years [...] on filedocumented in this encounter Care Teams Tourist Information Assistant Relationship Specialty Start Date End Date Eunice Magana MD [address] [place] [address] PCP - General Family Medicine 07/25/18 documented as of this encounter
--- OUTSIDE RECORDS SUMMARY | 2025-04-10 11:20 | XMS_ITS | Clinical Summary ---
Author Organization [employer] Address [address] [facility] 7t [place] [address] Care Team Providers Care Construction Cost Estimator Name Role Phone Eunice Magana MD Primary Care Provider [phone] Allergies No known active allergies Medications hydrocortisone 2.5 % creamIndicatio ns:Rash Apply topically 2 times daily. 15 g 1 12/25/19 25 Active Vit-Fe Fumarate-FA ( Vitamins) 28-0.8 MG tabletIndicati ons:Family Planning Take 1 tablet by mouth Once per day. 90 tablet 3 04/10/20 25 026 Active topiramate (Topamax) 50 MG tablet Take 1 tablet (50 mg) by mouth Once per day. 30 tablet 5 04/10/20 25 Active phentermine 15 MG capsule Take 1 capsule (15 mg) by mouth before breakfast. 30 capsule 04/10/20 25 025 Active ergocalciferol (Vitamin D2) 1.25 MG (60157 UT) capsule Take 1 capsule (1.25 mg) by mouth 1 (one) time per week. 15 capsule 02/02/20 24 025 Discontinued norgestimate-e thinyl estradiol (Ortho-Cyclen) 0.25-35 MG-MCG tablet Take 1 tab orally daily 84 tablet 2 10/26/19 25 025 Discontinued(Th erapy completed) topiramate (Topamax) 50 MG tablet Take 1 tablet (50 mg) by mouth Once per day. 30 tablet 3 01/22/20 25 025 Discontinued(Re order (will not trigger notification to Pharmacy)) phentermine 8 MG tablet Take 1 tablet (8 mg) by mouth Once per day. 30 tablet 2 01/22/20 25 025 Discontinued(Th erapy completed) Active Problems Problem Noted Date Diagnosed Date DUB (dysfunctional uterine bleeding) 10/29/2024 Endometrial thickening on ultrasound 10/29/2024 Class 3 severe obesity witho ut serious comorbidity with body mass index (BMI) of 40.0 to 44.9 in adult 10/27/2022 Childhood obesity 07/11/2018 Encounters Date Type Department Care Team Description 04/10/2025 9:30 AM EDT Office Visit [facility] & [facility]EDS [address] [place] [address] Eunice Magana MD Prediabetes (Primary Dx); Missed periods 04/10/2025 Travel 04/09/2025 Travel 04/08/2025 Telephone [facility] MED & P[facility]S [address] [place] [address] Eunice Magana MD chart prep 01/19/2025 Refill [facility] P[facility] [address] [place] [address] Eunice Magana MD 01/19/2025 Refill [facility] [address] [place] [address] Eunice Magana MD from Last 3 Months Immunizations Immunization Administration Dates Next Due DTaP 04/03/2004, 1,2000,08/29,2000 HPV, Quadrivalent 10/09/2010,05/13/2010,03/13/20 10 Hep A, ped/adol, 2 dose 07/16/2014 Hep B, Adolescent or Pediatric 08/24/2018,2000,2000 Hep B, adult 04/03/2019,10/02/2018 IPV 04/03/2004, 1,2000,05/30 Influenza injectable quadriv alent preservative free 09/26/2023,07/23/2016,07/23/2015,04/29 Influenza, Split (incl. gunnar fied surface antigen) 05/11/2013 MMR 04/03/2004,2001 Meningococcal MCV4P ACYW-135 07/23/2016,03/11/20 11 Pfizer Covid-19 Vaccine 12+ 09/26/2023, Pneumococcal Conjugate PCV 7 2001, 2000,2000,08/29 TD [...] Health Questionnaire-2 Score 2 04/10/2025 Comments Unknown Intention Date Recorded Wants to become (finding) 09/14 Sex and Gender Information Value Date Recorded [...] 20 04/10/2025 9:14 AM EDT Oxygen Saturation 99% 12/24/2024 5:26 PM EDT Inhaled Oxygen Concentration - - Weight 120 kg (265 lb) 04/10/2025 9:14 AM EDT Height 163.8 cm (5' 4.5 ) 12/24/2024 5:26 PM EDT Body Mass Index 44.78 12/24/2024 5:26 PM EDT Plan of Treatment Health Maintenance Due Date Last Done Comments Alcohol/Substance Use Screening 2012 Hepatitis A Vaccines (2 of 2 - 2-dose series) 01/14/2015 07/16/2014 DTaP/Tdap/Td Vaccines (7 - Td or Tdap) 07/16/2024 07/16/2014, 03/13/2010, 04/03/2004, Additional history exists SDOH Screening 09/16/2024 09/16/2023 COVID-19 Vaccine ( season) 2025 09/26/2023, 06/16/2021, 05/11/2021 Influenza Vaccine (#1) 2025 , 07/23/2016, 07/23/2015, Additional history exists Diabetes: Hemoglobin A1C 09/14/2025 025, 02/01/2024, 12/15/2021, Additional history exists Family Planning (PISQ) 09/17/2025 09/17/2024 Disability Screening 10/24/2025 10/24/2024 Pap Smear 02/17/2026 02/17/2023, 01/14/2022 Depression Screening 04/10/2026 04/10/2025, 04/10/20 25 Tobacco Screening 04/10/2026 04/10/2025 Lipid Panel 09/14/2029 09/14/2024, 01/22, 12/15/2021, Additional history exists Zoster Vaccines (1 of 2) 2050 RSV Patients and Patients Aged 60 years or older (1 - 1-dose 75+ series) 2075 Pneumococcal Vaccine: Pediatrics (0 to 5 Years) and At-Risk Patients (6 to 49) Years Aged Out 2001, 2000, 2000, Additional history exists No longer eligible based on patient's age to complete this topic IPV Vaccines Completed 04/03/2004, 09/23, 2000, Additional history exists HPV Vaccines Completed 10/09/2010, 04/25, 03/13/2010 Meningococcal Vaccine Completed 07/23/2016, 011 Hepatitis B Vaccines Completed 04/03/2019, 10/02/2018, 08/24/2018, Additional history exists HIV Screening Completed 09/14/2024, 12/2023, 12/15/2021 Hepatitis C Screening Completed 09/14/2024 , 02/01/2024, 09/28/2023, Additional history exists HIB Vaccines Aged Out No longer eligi ble based on patient's age to complete this topic Meningococcal B Vaccine Aged Out No l onger eligible based on patient's age to complete this topic RSV under 20 months Aged Out No longe r eligible based on patient's age to complete this topic Rotavirus Vaccines Aged Out No longer eligible based on patient's age to complete this topic Procedures Procedure Name Priority Date/Time Associated Diagnosis Comments HEPATITIS C AB W/REFL TO HCV RNA, QN, PCR Routine 09/14/2024 12:52 PM EST DUB (dysfunctional uterine bleeding) HIV 1/2 ANTIGEN/ANTIBODY, FOURTH GENERATION W/RFL Routine 09/14/2024 12:52 PM EST DUB (dysfunctional uterine bleeding) HEMOGLOBIN A1C Routine 09/14/2024 12:52 PM EST DUB (dysfunctional uterine bleeding) LIPID PANEL, STANDARD Routine 09/14/2024 12:52 PM EST Class 3 severe obesity without serious comorbidity with body mass index (BMI) of 40.0 to 44.9 in adult, unspecified obesity type (CMS/HCC) PAP SMEAR Routine 02/17/2023 12:00 AM EDT Encounter for gynecological examination with abnormal finding from Last 3 Months or Most Recently Relevant to Health Maintenance Results * Hepatitis C Antibody with Reflex to HCV, RNA, Quantitative, Real-Time PCR (09/14/2024 12:52 PM EST) Hepatitis C Antibody Nonreactive Nonreactive [facility] Comment:Antibodies to HCV no t detected; does not exclude early acuteHCV infection. Blood Venous blood specimen / Unknown 09/14/2024 12:52 PM EST 09/14/2024 1:55 PM EST Eunice Magana MD LAB BLOOD ORDERABLES Final Re sult [facility] [address] [place] [phone] * HIV-1/2 Antigen and Antibodies, Fourth Generation, with Reflexes (09/14/2024 12:52 PM EST) HIV AB/AG Nonreactive Nonreactive [facility] Comment:HIV-1 p24 Ag and/or HIV-1/HIV-2 Ab not detected.A test result that is nonreactive does not exclude thepossibility of exposure to or infection with HIV-1 and/orHIV-2. Nonreactive results in this assay for individualswith prior exposure to HIV-1 and/or HIV-2 may be due toantigen and antibody levels that are below the limit ofdetection of this assay.The [employer] HIV Ag/Ab Combo assay result andsupplemental assay results should be interpreted inconjunction with the patient's clinical presentation,history and other laboratory results. If the results areinconsistent with clinical evidence, additional testing issuggested to confirm the result. Blood Venous blood specimen / Unknown 09/14/2024 12:52 PM EST 09/14/2024 1:55 PM EST Eunice Magana MD LAB BLOOD ORDERABLES Final Re sult Performing Organization Address City/[facility]/ZIP Co de Phone Number [facility] [address] [place] [phone] * Hemoglobin A1c (09/14/2024 12:52 PM EST) Hemoglobin A1c 5.6 <6.0 % [facility] Comment:Hemoglobin A1C Refer ence Range Adults: 4.8 - 6.0 % Non diabetic: < 6.0 % Goal: < 7.0 %Additional Action Suggested: > 8.0 %Note: Hemoglobin A1c results are invalid for patients with abnormal amounts of HbF. Blood transfusions may impact the HbA1c concentration in the patient sample. Estimated Average Glucose 114 mg/dL [facility] Comment:eAG = Estimated ave rage glucose which is %A1C expressed asaverage glucose, using the formula of the B0Y-XmnmsktXaqfeyv Glucose study (ADAG), Diabetes Care, Vol.31,#8,Feb. 2007 Blood Venous blood specimen / Unknown 09/14/2024 12:52 PM EST 09/14/2024 1:55 PM EST Eunice Magana MD LAB BLOOD ORDERABLES Final Re sult Performing Organization Address [facility] Co de Phone Number [facility] [address] [place] [phone] * Lipid Panel, Standard (09/14/2024 12:52 PM EST) Triglycerides 88 <150 mg/dL [facility] Comment:Desirable Triglyceri de: less than 150 mg/dLBorderline High Triglyceride 150-199 mg/dLHigh Triglyceride: 200-499 mg/dLVery High Triglyceride: greater than or equal to 5OO mg/dL Cholesterol 116 <200 mg/dL [facility] Comment:Desirable Cholestero l: less than 200 mg/dLBorderline High Cholesterol: 200-239 mg/dLHigh Cholesterol: greater than 239 mg/dL LDL Cholesterol Calculated 57 <100 mg/dL [facility] Comment:Desirable LDL: less than 100 mg/dLNear Optimal/Above Optimal LDL: 110- 129 mg/dLBorderline High LDL: 130-159 mg/dLHigh LDL: 160-189 mg/dLVery High LDL: greater than or equal to 190 mg/dL HDL Cholesterol 42 >40 mg/dL [facility] Comment:Desirable HDL: great er than 40 mg/dL Note: This HDL assay may give artificially low results in patients with liver disease. Blood Venous blood specimen / Unknown 09/14/2024 12:52 PM EST 09/14/2024 1:55 PM EST us Eunice Magana MD LAB BLOOD ORDERABLES Final Re sult [facility] [address] [place] [phone] * Pap Smear (02/17/2023 12:00 AM EDT) Swab Cervix uteri structure / Unknown 02/17/2023 02/22/2023 9:15 AM EDT Narrative [facility] - 03/16/2023 9:25 AM EDT ----- ------- Name: Melanie Mcgrathjad Age/Sex: 22/F : 2000 Unit#: [id number] Attend Dr: Eunice Magana MD Re02/17/23 Status: DEP REF Location: HO.CHCLNP Disch: ----- ------- SPEC : [id number] RECD: 02/22/23 STATUS: CLARICE GUEAVRA NUM: [id number] ALECIA: 02/17/23-[address]: Eunice Magana MD ENTERED: 02/23/23 SP TYPE: Pap Smr OTHR DR: ORDERED: Pap Smear Interpretation Satisfactory for evaluation. Negative for intraepithelial lesion or malignancy. Clinical Information LMP: 12/23/22, Irregular Previous PAP test: 01/14/22, Abnormal Other history: Hx of abnormal pap within 3 years (ASCUS), hx of positive HPV test Material Received ThinPrep-Cervical ----- ------- Signed (signature on file) GRETTA Carlson (ASCP) 03/16/23 0925 ----- ------- END OF REPORT Eunice Magana MD LAB CYTOLOGY ORDERABLES Final Result [facility] [address] [place] [phone] from Last 3 Months or Most Recently Relevant to Health Maintenance Insurance C3 Care Teams Construction Cost Estimator Relationship Specialty Start Date End Date Eunice Magana MD [address] [place] [phone] PCP - General Family Medicine 07/25/18
--- OUTSIDE RECORDS SUMMARY | 2025-04-10 11:20 | XMS_ITS | Encounter Summary ---
Author Organization [employer] Address [address] [facility] 7t [place] [address] Care Team Providers Care Loan Clerk Name Role Phone Eunice Magana MD Primary Care Provider [phone] Encounter Details Date Type Department Care Team (Latest Contact Info) Description 04/10/2025 Travel Social History Tobacco Use Types Packs/Day [...] AM EDT documented as of this encounter Functional Status * Over the past 2 weeks, how often have you been bothered by any of the following problems? Question Answer Date of Assessment Author Patient Health Questionnaire -2 Score 2 04/10/2025 9:17 AM Lowell Stephens MA * Little interest or pleasure in doing things Answer Date of Assessment Author Several days 04/10/2025 9:17 AM Jacinta Stephens MA * Feeling down, depressed, or hopeless Answer Date of Assessment Author Several days 04/10/2025 9:17 AM Jacinta Stephens MA * Trouble falling or staying asleep, or sleeping too much Answer Date of Assessment Author Several days 04/10/2025 9:17 AM Jacinta Stephens MA * Feeling tired or having little energy Answer Date of Assessment Author Several days 04/10/2025 9:17 AM Jacinta Setphens MA * Poor appetite or overeating Answer [...] Author Not at all 04/10/2025 9:17 AM EDT Jacinta Rosales MA * Patient Health Questionnaire-9 Score Answer Date of Assessment Author 4 04/10/2025 9:17 AM EDT Jacinta Rosales MA * How difficult have these problems made it for you to do your work, take care of things at home, or get along with other people? Answer Date of Assessment Author Not difficult at all 04/10/2025 9:17 AM EDT Jacinta Richards MA documented as of this encounter Plan of Treatment Not on file documented as of this encounter Visit Diagnoses Not on filedocumented in this encounter Additional Health Concerns Assessment Noted Time PHQ-9 Depression Total Score: 4 04/10/20 25 9:17 AM EDT documented as of this encounter Care Teams Loan Clerk Relationship Specialty Start Date End Date Eunice Magana MD [address] [place] [address] PCP - General Family Medicine 07/25/18 documented as of this encounter
--- OUTSIDE RECORDS SUMMARY | 2025-04-10 11:20 | XMS_ITS | Encounter Summary ---
Author Organization [employer] Address [address] [facility] 7 [place] [address] Care Team Providers Care Damper Worker Name Role Phone Eunice Magana MD Primary Care Provider [phone] Reason for Visit * Reason Onset Date Comments Nurse Triage 12/24/2024 Encounter Details Date Type Department Care Team ([facility] st Contact Info) Description 12/24/2024 Telephone [facility] MEDICINE [address] [place] [address] Eunice Magana MD [address] [place] [phone] Nurse Triage Social History Tobacco Use Types [...] t he electric, gas, oil or water Ferfics threatened to shut off services in your home? No 09/16/2023 Comments Unknown Sex and Gender Information Value Date Recorded Sex Assigned at Female 05/24/2022 10:17 AM EDT Legal Sex Female 10:17 AM EDT Gender Identity Female 05/24/2022 10:17 AM EDT Sexual Orientation Straight 02/01/2024 10 :38 AM EDT documented as of this encounter Miscellaneous Notes * Telephone Encounter - Ella Kinsey RN - 12/24/2024 4:06 PM EDT Triage call Pt reports localized rash on right thigh. Pt reports returned from [facility] 12/13/24 and then the rash started. Pt reports having had an operation there which included injections into that thigh and a blood transfusion. Pt reports rash is red, feels hot to touch at times, becomes bumpy if scratched due to itchiness and becomes hard after scratching. Pt denies pain or blisters. No available apts in [facility] today or tomorrow, Advised Pt to come to WIC at [facility] open till 8pm and Pt agrees to come there to be seen this evening. Pt agrees with disposition and insurance is verified as active prior to booking. Protocol Used: Rash or Redness - Localized (Adult) Protocol-Based Disposition: See in Office or Video Visit within 3 Days Video visit not offered Positive Triage Question: * Localized rash present > 7 days * All higher-acuity triage questions were negative Care Advice Discussed: * Reassurance and Education - Mild Localized Rash * Avoid the Cause * Wash the Area * Cold Pack for Mild Itching or Mild Pain * Hydrocortisone Cream for Itching * Don't Scratch * Contagiousness * Expected Course * Reasons To Call Back - Rash spreads or becomes worse - Rash lasts longer than 1 week - You become worse * Telephone Encounter - Kyaw Rosales - 12/24/2024 3:40 PM EDT Symptom: Rash or Redness on One Body Area Only Outcome: Schedule an appointment to be seen within 3 days Reason: Caller denied all higher acuity questions Please contact pt at [phone]. documented in this encounter Plan of Treatment Not on file documented as of this encounter Visit Diagnoses Not on filedocumented in this encounter Care Teams Damper Worker Relationship Specialty Start Date End Date Eunice Magana MD [address] [place] [address] PCP - General Family Medicine 07/25/18 documented as of this encounter
--- OUTSIDE RECORDS SUMMARY | 2025-04-10 11:20 | XMS_ITS | Encounter Summary ---
Author Organization [employer] Address [address] [place] [address] 7 [place] [address] Care Team Providers Care Coffee Urn Attendant Name Role Phone Eunice Magana MD Primary Care Provider [phone] Reason for Visit * Reason Onset Date Comments chart prep 04/08/2025 Encounter Details Date Type Department Care Team ([facility] st Contact Info) Description 04/08/2025 Telephone [facility] MED & PEDS [address] [place], [place] [phone] Eunice Magana MD [address] [place] [address] chart prep Social History Tobacco Use Types Packs/Day Years [...] Author Several days 04/10/2025 9:17 AM Jacinta tSephens MA * Feeling down, depressed, or hopeless [...] 04/10/2025 9:17 AM Jacinta Stephens MA * Poor appetite or overeating Answer Date of Assessment Author Not at all 04/10/2025 9:17 AM Jaicnta Stephens MA * Feeling bad about yourself [...] 9:17 AM EDT Jacinta Rosales MA * Thoughts that you would be [...] Richards MA documented as of this encounter Miscellaneous Notes * Telephone Encounter - Jeremiah Phillips MA - 04/08/2025 3:24 PM EDT Chart Prep Labs: done Images: done Referrals: appointment pending Vaccines due: Tdap and Hep A Screenings: Overdue care gaps: SDOH and PHQ-9 documented in this encounter Plan of Treatment Not on file documented as of this encounter Visit Diagnoses Not on filedocumented in this encounter Care Teams Coffee Urn Attendant Relationship Specialty Start Date End Date Eunice Magana MD [address] [place] [address] [place] [address] PCP - General Family Medicine 07/25/18 documented as of this encounter
--- OUTSIDE RECORDS SUMMARY | 2025-04-10 11:20 | XMS_ITS | Encounter Summary ---
Author Organization [employer] Address 75 [facility] 7 [place] [address] Care Team Providers Care Typing Bookkeeper Name Role Phone Eunice Magana MD Primary Care Provider [phone] Reason for Visit * Reason Onset Date Comments Appointment Request 09/14/2023 Encounter Details Date Type Department Care Team ([facility] st Contact Info) Description 09/14/2023 Telephone [facility] MEDICINE [address] [place] [address] Eunice Magana MD [address] [place] [phone] Appointment Request Social History Tobacco Use Types [...] on filedocumented in this encounter Care Teams Typing Bookkeeper Relationship Specialty Start Date End Date Eunice Magana MD [address] [place] [phone] PCP - General Family Medicine 07/25/18 documented as of this encounter
--- OUTSIDE RECORDS SUMMARY | 2025-04-10 11:20 | XMS_ITS | Clinical Summary ---
Author Organization [facility] Address [address] [place] [address] Phone Care Team Providers Care Gaming Surveillance Observer Name Role Phone Eunice Magana MD Primary Care Provider [phone] Social History Tobacco Use Types Packs/Day Years Used Date Smoking Tobacco: Never Assessed Comments Unknown Sex and Gender Information Value Date Recorded Sex Assigned at Female 09/21/2024 12:27 PM EST Legal Sex Female 9:00 AM EST Gender Identity Female 09/21/2024 12:27 PM EST Sexual Orientation Straight 09/21/2024 12 :27 PM EST Plan of Treatment Health Maintenance Due Date Last Done Comments Hepatitis A Vaccines (2 of 2 - 2-dose series) 01/14/2015 07/16/2014 Social Influencers of Health Screening 06/27/2022 DTaP,Tdap,and Td Vaccines (8 - Td or Tdap) 07/16/2024 07/16/2014, 03/13/2010, 04/03/2004, Additional history exists Depression Screening 07/25/2024 COVID-19 Vaccine ( season) 2025 09/26/2023, 06/16/2021, 05/11/2021 Influenza Vaccine (#1) 2025 , 07/23/2016, 07/23/2015, Additional history exists Cervical Cancer Screening: Pap Smear 02/17/2026 02/17/2023 Cholesterol Screening (Lipid Panel) 09/14/2029 09/14/2024 Pneumococcal Vaccine: Pediatrics (0 to 5 Years) and At-Risk Patients (6 to 49 Years) Completed 2001, 2000, 2000, Additional history exists Varicella Vaccines Aged Out 06/07/2001 No longer eligible based on patient's age to complete this topic IPV Vaccines Completed 04/03/2004, 09/23, 2000, Additional history exists MMR Vaccines Completed 04/03/2004, 2001 HPV Vaccines Completed 10/09/2010, 04/25, 03/13/2010 Meningococcal ACWY Vaccine Completed 07/23/2016, Hepatitis B Vaccines Completed 04/03/2019, 10/02/2018, 08/24/2018, Additional history exists Gonorrhea/Chlamydia Screening Discontinued 09/14/2024 HIV Screening Completed 09/14/2024 Hepatitis C Screening Completed 09/14/2024 HIB Vaccines Aged Out No longer eligi ble based on patient's age to complete this topic Meningococcal B Vaccine Aged Out No l onger eligible based on patient's age to complete this topic RSV Immunization Patients Under 20 months Aged Out No longer eligible based on patient's age to complete this topic Insurance PLAN Care Teams Gaming Surveillance Observer Relationship Specialty Start Date End Date Eunice Magana MD [address] [place] [phone] PCP - General Internal Medicine 09/21/24
--- OUTSIDE RECORDS SUMMARY | 2025-04-10 11:20 | XMS_ITS | Encounter Summary ---
Author Organization [employer] Address [address] [facility] 7t [place] [address] Care Team Providers Care Data Communications Analyst Name Role Phone Eunice Magana MD Primary Care Provider [phone] Encounter Details Date Type Department Care Team ([facility] Contact Info) Description 02/02/2024 Telephone [facility] MED & PEDS [address] [place], [place] [phone] Eunice Magana MD [address] [place], [place] [phone] Social History Tobacco Use Types Packs/Day Years [...] on filedocumented in this encounter Care Teams Data Communications Analyst Relationship Specialty Start Date End Date Eunice Magana MD [address] [place] [phone] PCP - General Family Medicine 07/25/18 documented as of this encounter
[2025-04-10 14:18] LABS: MANUAL DIFF FLAG NO
[2025-04-10 14:31] LABS: Hematocrit 36.6 % (37.0-47.0); Hemoglobin 10.8 g/dl (12.0-16.0); Imm Gran Abs Auto 0.08 X10*3/uL (0.00-0.03); Imm Gran Pct Auto 1.2 % (0.0-0.4); Lymphocytes Absolute Auto 2.1 X10*3/uL (1.2-4.9); Mean Corpuscular HGB Conc 29.5 g/dl (31.0-35.0); Mean Corpuscular Hemoglobin 20.7 pg (27.0-33.0); Mean Corpuscular Volume 70.2 fL (80.0-98.0); NRBC Abs Auto 0.000 X10*3/uL (0.0-0.012); NRBC Pct Auto 0.0 /100WBC (0.0-0.2); Platelet Count 278 X10*3/uL (160-400); Red Blood Count 5.21 X10*6/uL (4.20-5.50); White Blood Count 6.7 X10*3/uL (4.8-10.8)
[2025-04-10 14:38] LABS: Hemoglobin A1C 131.2714 umol/L; Total Hemoglobin (HGBA1C) 2895.6331 umol/L
[2025-04-10 14:56] LABS: Alanine Aminotransferase 56 U/L (0-31); Albumin Level 4.2 g/dL (3.5-5.0); Alkaline Phosphatase 66 U/L (39-117); Aspartate Amino Transferase 45 U/L (5-31); Total Protein 7.0 g/dL (6.5-8.0)
== END 2025-04-10 09:35 | disposition home or self-care (01) ==
LOC: HO.CHCLDS 09:34
PROVIDERS: Visit Provider Pediatrics
DX: R73.03 Prediabetes (principal); N92.6 Irregular menstruation, unspecified
CPT/HCPCS: 36415; 80076; 82306; 83036; 84702; 85025